=== PATIENT | female | born 1955 | race Caucasian/White ===

== ENCOUNTER 2023-06-17 17:50 | Emergency (ER) | payer MEDICARE, SELFPAY ==
[2023-06-17] VITALS (14 sets, daily range): BP systolic 141–215; BP diastolic 61–148; PULSE 70–98; RESP 15–18; TEMP 36.8–37.2; O2SAT 89–99; BMI 29.9
--- NOTE | 2023-06-17 18:00 | EKG12_ITS ---
Test Reason : DYSRHYTHMIA Blood Pressure : / mmHG Vent. Rate : 072 BPM Atrial Rate : 072 BPM P-R Int : 168 ms QRS Dur : 080 ms QT Int : 452 ms P-R-T Axes : 038 031 046 degrees QTc Int : 494 ms Sinus rhythm with Premature atrial complexes Cannot rule out Inferior infarct , age undetermined Abnormal ECG Confirmed by YANG MENEZES, DOMINIQUE ([id number]), material expeditor MELA SMITH ([id number]) on 06/25/2023 7:31:48 AM Referred By: Confirmed By:DOMINIQUE SORIA MD
--- NOTE | 2023-06-17 18:00 | CT_ITS ---
We are attempting to reach an attending provider to discuss findings. An addendum with communication details will be sent when the communication is complete. STUDY: CTA HEAD AND NECK WITH CONTRAST REASON FOR EXAM: Female, 67 years old. Neuro deficit, acute, stroke suspected RADIATION DOSAGE (If Supplied By Facility): CTDIvol = ( 55.62 ) mGy, DLP = ( 1571.63 ) mGycm TECHNIQUE: CT angiography was performed with a multi-detector CT scanner. Data acquisition was obtained from the skull base through the vertex following intravenous administration of IV 100mL Isovue-370. MIP images were reconstructed from the axial data set. Post-processing of the angiographic images was performed, with multiplanar reformation and 3D reconstruction. Individualized dose optimization techniques were used for this CT. COMPARISON: No relevant priors. FINDINGS: Intracranial atherosclerosis. Right petrous segment internal carotid artery occluded or nearly occluded. Normal left petrous carotid arteries. Moderate plaque and narrowing in the cavernous segment right ICA. Normal left cavernous carotid artery with a normal supraclinoid bifurcation. Normal right A1 segments of the anterior cerebral artery. Normal left A1 segments of the anterior cerebral artery. Normal intact anterior communicating artery (ACOM). Normal bilateral A2 segments of the anterior cerebral arteries. Normal right M1 and M2 segments of the middle cerebral arteries, with a normal M1 bifurcation. Normal left M1 and M2 segments of the middle cerebral arteries, with a normal M1 bifurcation. Normal right posterior communicating artery (PCOM). 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 Normal bilateral vertebral arteries. Normal basilar artery with a normal basilar bifurcation. The visualized bilateral superior cerebellar (SCA) arteries are normal. Normal bilateral P1, P2 and visualized P3 segments of the posterior cerebral arteries. There is no demonstrated aneurysm of the [place]. Ill-defined edema, mass effect and loss of egan-white matter differentiation in the right perirolandic region. AORTIC ARCH: Normal visualized aortic arch. Normal origins of the brachiocephalic, left common carotid, and left subclavian arteries. RIGHT CAROTID ARTERIES: Normal right common carotid artery (CCA). There is moderate atherosclerotic plaque formation with moderate narrowing of the right carotid bulb. Right ICA occluded or nearly occluded. Normal origin of the right external carotid artery (ECA). LEFT CAROTID ARTERIES: Normal left common carotid artery (CCA). Normal left common carotid bulb. Normal origin of the left internal carotid (ICA) artery without a hemodynamically significant stenosis. Normal visualized cervical portion of the left internal carotid artery. Normal origin of the left external carotid artery (ECA). VERTEBRAL ARTERIES: Occlusion or near occlusion v1 segment right vertebral artery. There is reconstitution of the remainder of the right vertebral artery. Right vertebral artery is dominant. Left vertebral artery appears atretic but patent. Bilateral thyroid nodules measuring up to 14 mm. Recommend nonemergent thyroid ultrasound. 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 There is reconstitution of the cavernous segment of the right ICA. Edema right perirolandic region consistent with moderate sized acute CVA.. No large vessel occlusion identified. Follow-up MRI with and without IV contrast recommended. Occlusion or near occlusion V1 segment right vertebral artery with reconstitution. INDICATION: Neuro deficit, acute, stroke suspected EXAMINATION: CT BRAIN - CTA Head and Neck Stroke W/ Contrast (and W/O if performed) TECHNIQUE: Multiple axial images were obtained of the head without intravenous contrast. A radiation dose optimization technique was used for this scan. IV Contrast dosage and agent: None. RADIATION DOSAGE (If Supplied By Facility): CTDIvol = ( 55.62 ) mGy, DLP = ( 1571.63 ) mGycm COMPARISON: FINDINGS: BRAIN PARENCHYMA: No intra- or extra-axial hemorrhage. Edema right perirolandic region presumably represents a middle cerebral artery infarct. No intracranial mass or mass effect. There is preservation of the egan/white matter interface. Posterior fossa structures are unremarkable. CSF SPACES: Appropriate for age. No hydrocephalus. Basal cisterns are patent. CALVARIUM, SKULL BASE, PARANASAL SINUSES AND MASTOID AIR CELLS: Subcutaneous nodules consistent with probable sebaceous cyst. Clear. No discrete lytic or blastic abnormalities. ORBITS: Both globes, extraocular muscles, optic nerves and retrobulbar fat appear unremarkable. ASPECTS Score for Acute Strokes: 10 CT/STROKE CTA Head AND Neck W/Con IMPRESSION: No hemorrhage. Probable acute right MCA infarct. It appears somewhat rounded and well-defined underlying mass effect but no midline shift. Follow-up MRI with and without IV contrast recommended also. Electronically Signed: Tutu Soto MD at 19:01 EDT ,
--- NOTE | 2023-06-17 18:17 | EDS_ITS ---
HPI History of Present Illness Chief Complaint: Stroke Alert Informant: EMS Narrative Narrative: EMS presents with a prehospital stroke team due to patient not able to speak and last seen normal yesterday at 2000, which was 22 hours prior to evaluation. History of bedbugs at the patient's home according to EMS. No other known history, patient not able to provide. [facility] Medical History (Updated 06/17/23 @ 19:[address] Leighton Giang MD) Colitis Hypertension Home Medications hydrochlorothiazide 25 mg tablet mg 06/17/23 [History Last Taken Unknown] losartan 50 mg tablet mg 06/17/23 [History Last Taken Unknown] trazodone 50 mg tablet mg 06/17/23 [History Last Taken Unknown] Allergy/AdvReac Type Severity Reaction Status Date / Time Unable to Assess Allergy Verified 06/17/23 18:14 Social History Smoking Status: Unknown if ever smoked ROS ROS ED Review of Systems ROS Unobtainable: due to mental status EXAM Physical Exam Const Vital Signs: 06/17/23 17:55 06/17/23 17:54 06/17/23 18:16 Temperature 98.9 F Temperature Source Oral Pulse Rate 89 89 98 Respiratory Rate 16 16 16 Blood Pressure 215/90 H 210/90 H 214/148 H Blood Pressure Mean 131 130 170 Pulse Ox 96 96 93 Oxygen Delivery Method Room Air Room Air Room Air Oxygen Flow Rate (L/min) 06/17/23 18:27 06/17/23 18:28 06/17/23 18:00 Temperature Temperature Source Pulse Rate 70 89 Respiratory Rate 15 16 Blood Pressure 173/61 H 193/116 H Blood Pressure Mean 98 141 Pulse Ox 89 96 96 Oxygen Delivery Method Room Air Nasal Cannula Room Air Oxygen Flow Rate (L/min) 2 06/17/23 18:30 06/17/23 18:46 06/17/23 19:00 Temperature Temperature Source Pulse Rate 71 73 70 Respiratory Rate 18 17 16 Blood Pressure 166/74 H 150/75 H 154/78 H Blood Pressure Mean 104 100 103 Pulse Ox 94 95 98 Oxygen Delivery Method Nasal Cannula Room Air Nasal Cannula Oxygen Flow Rate (L/min) 2 2 06/17/23 19:30 06/17/23 20:00 06/17/23 21:00 Temperature 98.3 F Temperature Source Pulse Rate 75 75 78 Respiratory Rate 16 15 15 Blood Pressure 160/73 H 172/81 H 155/80 H Blood Pressure Mean 102 111 105 Pulse Ox 95 99 95 Oxygen Delivery Method Nasal Cannula Nasal Cannula Oxygen Flow Rate (L/min) 2 2 06/17/23 21:00 06/17/23 21:30 06/17/23 20:30 Temperature Temperature Source Pulse Rate 78 77 79 Respiratory Rate 15 16 17 Blood Pressure 155/80 H 182/86 H 141/61 H Blood Pressure Mean 105 118 87 Pulse Ox 95 96 95 Oxygen Delivery Method Nasal Cannula Nasal Cannula Nasal Cannula Oxygen Flow Rate (L/min) 2 2 2 Positive well nourished and well developed Constitutional Narrative: Actively vomiting but otherwise in no distress. General Appearance ED: well developed and NAD HEENT Reports moist mucous membranes normocephalic and atraumatic Eyes PERRL and EOMs intact bilaterally Neck full ROM and supple Resp normal respiratory effort and clear to auscultation bilaterally Cardio regular rate, regular rhythm and no murmurs Rate: Negative for tachycardic GI non-tender and non-distended Auscultation: normoactive bowel sounds Palpation: soft Back/Spine no CVA tenderness General Back: other FROM Extremity normal to inspection General Extremety ED: Negative for edema, pulses abnormal or tenderness General Extremity: Negative for edema or pulses abnormal Neuro Neuro Narrative: Keenly alert, mute/completely aphasic. Responds to some commands, able to lift arms and legs on command but not able to squeeze hand, perform [id number] or [id number], nor close her eyes on command. No clinically lateralizing neurologic deficits other than speech. Skin no rashes or lesions noted and no wounds NIHSS NIHSS Initial: 1a Level of Consciousness: 0 1b LOC Questions (Score 2 if aphasic/stupor): 2 1c LOC Commands (Only score 1st attempt): 2 2 Best Gaze (If aphasic, use reflexive mvmts.): 0 3 Visual: 0 4 Facial Palsy: 0 5 Motor Arm Right (UN = amputation/fusion): 0 5 Motor Arm Left: 0 6 Motor Leg Right: 0 6 Motor Leg Left: 0 7 Limb ataxia (Only + if out of proportion): 0 8 Sensory (Aphasia/stupor=0 or 1, coma=2): 1 9 Best Language: 3 10 Dysarthria (mute, coma=2, intubated=UN): 2 11 Extinction and Inattention (only scored if +): 0 Total Score: 10 MDM MDM MDM Narrative Medical decision making narrative: I discussed with stroke neurology as I evaluated the patient immediately upon arrival back to the room from CT. In reviewing the CT images, she appears to have a foot encephalomalacia versus a mass right high parietal lobe, and no acute hemorrhage. Neurology agrees that the patient is not a thrombolytic candidate, and if there is suspicion for mass versus LVO, they would accept the patient in transfer. For now her blood pressure did go quite high so we administered labetalol and Zofran initially. Discussed with radiology on stat interpretation of CTA head and neck. There is no bleed, but she does have evidence of an acute ischemic right MCA territory stroke with some mild edema as well as a completely occluded right ICA in the neck with some distal reconstitution in the head. I discussed with vascular Dr. Lea, he defers to stroke neurology, discussed with Dr. Almanzar again. At this time the patient is 23.5 hours post last known well time, and therefore he states is not a candidate for thrombectomy which I agree with. He recommends giving the patient rectal aspirin, and still transferring to [facility] due to the fact that this is a large stroke, there is edema, and if worsens in the short-term which certainly there is risk for, would need a neurosurgery consultation. Since patient needs to be transferred to [facility] and admitted to the ICU urgently, not emergently for intervention, will seek ground transport and continue monitoring the patient's blood pressure. He recommends not lowering her blood pressure purposefully anymore than necessary unless she goes over the 220/120 guideline. History & Record Review Additional record(s) reviewed:: No prior records Lab Data Attestation: I reviewed the patient's lab results. Labs: Laboratory Results - last 24 hr 06/17/23 18:15 WBC 10.8 RBC 5.34 Hgb 16.0 H Hct 48.5 H MCV 90.8 MCH 30.0 MCHC 33.0 RDW Std Deviation 44.3 H RDW Coeff of Daph[place] 13.2 Plt Count 406 MPV 10.8 Immature Gran % (Auto) 0.400 Neut % (Auto) 61.1 Lymph % (Auto) 28.1 [place] % (Auto) 7.5 Eos % (Auto) 2.4 Baso % (Auto) 0.5 Absolute Neuts (auto) 6.6 Absolute Lymphs (auto) 3.04 Nucleated RBC % 0 PT 13.9 INR 1.1 APTT 27.8 Sodium 135 L Potassium 3.3 L Chloride 102 Carbon Dioxide 27.0 Anion Gap 6 BUN 15 Creatinine 0.79 Estim Creat Clear Calc 49.80 Est GFR (MDRD) Af Amer 93 Est GFR (MDRD) Non-Af 77 BUN/Creatinine Ratio 18.9 Glucose 145 H Calcium 9.5 Troponin I High Sens 13 Radiography Diagnostic Testing: Clinical Impression(s) from Imaging Studies Head/Neck CTA 06/17/23 18:00 IMPRESSION: No hemorrhage. Probable acute right MCA infarct. It appears somewhat rounded and well-defined underlying mass effect but no midline shift. Follow-up MRI with and without IV contrast recommended also. Electronically Signed: Tutu Soto MD at 19:01 EDT Reading Location ID and State: [address] [place] [address] Tel , Service support , ADDENDUM: 06/17/23 1908 IMPRESSION: No hemorrhage. Probable acute right MCA infarct. It appears somewhat rounded and well-defined underlying mass effect but no midline shift. Follow-up MRI with and without IV contrast recommended also. N.B. : The above Results were Read Back by Tutu Soto MD to Leighton Giang MD, and understanding confirmed on 06/17/2023 19:02:01 (ET). Electronically Signed: Tutu Soto MD at 19:01 EDT Reading Location ID and State: [address] [place] [address] Tel , Service support , Chest X-Ray 06/17/23 18:50 IMPRESSION: Normal x-ray examination of the chest. Electronically Signed: Tutu Soto MD at 20:44 EDT Reading Location ID and State: [address] [place] [address] Tel , Service support , Rhythm Strip Rhythm Strip: Sinus Rhythm Rate: 85 Ectopy: PAC(s) EKG Initial EKG: Attestation: I personally reviewed and interpreted this EKG as follows: Interpretation: Sinus Rhythm and No Acute Injury Pattern Prior EKG tracings: not available for review Management Discussion w/another healthcare provider: Legal Mediator (Stroke neurology Dr. Almanzar) and Radiologist Stroke Documentation Questions Stroke Team Activated: Yes Was Patient considered for Endovascular Intervention?: Yes-CTA +,PT transferred for further eval of endovascular intervention (transferred, but not interventional candidate - see above) IV Thrombolytic Administered: No (Due to timing unknown) Critical Care Time Critical Care Time: Yes Critical care time (excluding procedures): 30-74 minutes (37 min), Including time spent:, Discussing w/Patient &/or Family/Launching Pad Mechanic, Discussing w/Consultants, Arranging Admission or Transfer and Performing Direct Patient Care at Bedside Discharge Plan Triage Chief Complaint: Stroke Alert ED Provider: Leighton Giang Dx/Rx/DC Orders Clinical Impression: Occlusion of right internal carotid artery, Acute ischemic right MCA stroke Prescriptions: No Action losartan 50 mg tablet Patient Comments: TAKE 1 TABLET BY MOUTH EVERY DAY trazodone 50 mg tablet Patient Comments: TAKE 0.5 TAB(S) ORAL EVERY NIGHT AT BEDTIME ,INSTR:30MIN -1 HR PRIOR TO BED hydrochlorothiazide 25 mg tablet Patient Comments: TAKE 1 TABLET BY MOUTH EVERY DAY Primary Care Provider: Care Physician,No Primary Referrals: Care Physician,No Primary [Primary Care Provider] - Disposition Disposition: Acute Care Hospital Discharge Location: [facility] Discharge Date/Time: 06/17/23 21:50
[2023-06-17] MEDS: Ondansetron 4 MG/2 ML Vial IV (18:18)
[2023-06-17] MEDS: Labetalol (Prefilled) 20 MG/4 ML IV (18:18)
[2023-06-17 18:21] LABS: Absolute Lymphocyte Count 3.04 X10^3/uL (0.83-4.51); Absolute Neutrophil Count 6.6 X10^3/uL (2.0-7.7); Basophil# 0.05 X10^3/uL; Basophil% 0.5 % (0-1); Eosinophil# 0.26 X10^3/uL; Eosinophils% 2.4 % (0-5); Hematocrit 48.5 % (37-47); Lymphocyte # 3.04 X10^3/ul (0.83-4.51); Lymphocyte % 28.1 % (19-41); Mean Corpuscular Volume 90.8 fL (81-99); Mean Platelet Vol. 10.8 fl (6.2-12.0); Monocyte# 0.81 X10^3/uL; Monocyte% 7.5 % (0-10); NRBC Flagged by Analyzer 0 % (0-5); Neutrophil # 6.62 X10^3/uL (2.7-7.7); Neutrophil % 61.1 % (47-70); Platelet Count 406 K/mm3 (150-450); RBC Distribution Width CV 13.2 % (11.6-14.6); RBC Distribution Width SD 44.3 fl (35.1-43.9); Red Blood Count 5.34 M/mm3 (4.2-5.4); White Blood Count 10.8 K/mm3 (4.4-11.0)
[2023-06-17 18:31] LABS: International Normalized Ratio 1.1; Prothrombin Time (Protime)PT. 13.9 SECONDS (11.7-14.9)
[2023-06-17 18:32] LABS: Partial Thromboplast Time 27.8 Seconds (24.1-36.2)
[2023-06-17 18:42] LABS: Anion Gap 6 (5-15); BUN 15 mg/dL (7-18); BUN/Creat Ratio 18.9 RATIO (10-20); Calcium,Total 9.5 mg/dL (8.5-10.1); Chloride 102 mmol/L (98-107); Creatinine, Serum 0.79 mg/dL (0.55-1.02); EST Glomerular Filtration Rate 77 mL/min (>60); Est Glom Filt Rate - Afr Amer 93 mL/min (>60); Glucose 145 mg/dL (74-106); Potassium 3.3 mmol/L (3.5-5.1); Sodium Level 135 mmol/L (136-145); Troponin-I HS 13 pg/mL (3.0-54.0)
--- NOTE | 2023-06-17 18:50 | RAD_ITS ---
STUDY: X-RAY CHEST REASON FOR EXAM: Female, 67 years old. Neuro deficit, acute, stroke suspected TECHNIQUE: Single frontal view of the chest. COMPARISON: None. FINDINGS: The lungs are clear and expanded. There is no demonstrated pleural abnormality. Normal size heart. Normal mediastinum and halle. Normal visualized pulmonary arteries. Normal visualized aortic arch and descending thoracic aorta. Normal visualized thoracic spine. Normal visualized ribs, clavicles, and shoulders. There is no demonstrated abnormality of the visualized soft tissue structures of the upper abdomen. RAD/Chest 1 View IMPRESSION: Normal x-ray examination of the chest. Electronically Signed: Tutu Soto MD at 20:44 EDT ,
--- NOTE | 2023-06-17 19:56 | ED.RN ---
Addendum entered by Tayler Lopez 06/17/23 21:25: COR[place]CTION [phone] Original Note: sister Bibiana España [phone]
[2023-06-17] MEDS: Aspirin 300 MG Suppository RC (20:36)
--- NOTE | 2023-06-17 21:36 | ED.RN ---
[id number] REPORT CALLED TO [facility] NURSE, GARRETT
--- NOTE | 2023-06-17 21:47 | ED.RN ---
1900 sister called facility for update on pt. We were notified of Her insurance is new. It should be in her purse. Sister is notified that Gertrudis Rosado is in the facility and no medical information can be given.
== END 2023-06-17 21:50 | disposition short-term general hospital (02) ==
PROVIDERS: Emergency Provider Emergency Medicine; Visit Provider Emergency Medicine
DX: I65.21 Occlusion and stenosis of right carotid artery (principal); I63.511 Cerebral infarction due to unspecified occlusion or stenosis of right middle cerebral artery; I10 Essential (primary) hypertension; Z79.899 Other long term (current) drug therapy
CPT/HCPCS: 70496; 70498; 71045; 80048; 84484; 85025; 85610; 85730; 93005; 96374; 99285; Q9967; A4216; J2405